=== PATIENT | female | born 1940 | race Caucasian/White ===

== ENCOUNTER → 2017-05-18 | Outpatient (CLI) | payer MEDICARE, BC ==
--- NOTE | 2017-05-18 13:51 | RAD ---
2 Views of the Chest 05/18/2017 2:00 AM Indication: SHORTNESS OF AIR. Comparison: Chest radiograph October 06, 2011 Findings: There is no pneumothorax or pleural effusion. There is diffuse interstitial lung disease, mildly progressed in the interim since prior study. Heart size is top normal, similar to prior study. Aortic calcification is noted. No acute osseous changes are seen. Thoracic spine is poorly visualized on the lateral views. Probable mild compression deformity at T12 is noted. Impression: Mild interval progression of interstitial lung disease. An acute focal infiltrate is not identified. An atypical or interstitial pneumonia is difficult to completely exclude in this setting.
== END | disposition home or self-care (01) ==
LOC: RAD 12:25
PROVIDERS: ATTEND Internal Medicine Critical Care Medicine
DX: J84.9 Interstitial pulmonary disease, unspecified (principal)
CPT/HCPCS: 71020